=== PATIENT | male | born 1985 | race Caucasian/White ===

== ENCOUNTER 2019-11-12 17:08 | Outpatient (CLI) | payer BC, SELFPAY ==
--- NOTE | ~2019-11-12 | XR_ITS ---
EXAMINATION: XR chest 2V DATE: 11/12/2019 17:35 INDICATION: Shortness of breath. TECHNIQUE: Frontal and lateral views of the chest were obtained. COMPARISON: CT abdomen and pelvis 03/14/2018 FINDINGS: There are airspace opacities in right middle lobe. No pleural effusion or pneumothorax. The heart size is normal. IMPRESSION: 1. Airspace opacities in right middle lobe, consistent with atelectasis versus pneumonia. Reviewed, dictated and finalized at location A.
== END 2019-11-12 17:09 | disposition home or self-care (01) ==
LOC: ANHIMG 17:10
PROVIDERS: PCP Internal Medicine; Visit Provider Internal Medicine
DX: R06.02 Shortness of breath (principal); R91.8 Other nonspecific abnormal finding of lung field
CPT/HCPCS: 71046

== ENCOUNTER 2019-11-13 06:59 | Outpatient (NON) | payer BC, SELFPAY ==
[2019-11-13 19:09] LABS: SARS-CoV-2 RNA PCR Negative
== END 2019-11-13 07:00 ==
PROVIDERS: PCP Internal Medicine; Visit Provider Internal Medicine
DX: R68.89 Other general symptoms and signs (principal)
CPT/HCPCS: 87635; C9803; U0003

== ENCOUNTER 2019-11-23 11:08 | Outpatient (CLI) | payer BC, SELFPAY ==
--- NOTE | ~2019-11-23 | XR_ITS ---
XR chest 2V DATE: 11/23/2019 11:24 INDICATION: Shortness of breath TECHNIQUE: PA and lateral views COMPARISON: 11/12/2019 2 view chest FINDINGS: Normal heart size. No hilar or mediastinal enlargement. No pulmonary infiltrate or consol idation, pulmonary vascular congestion or pleural effusion or pneumothorax. IMPRESSION: Negative Reviewed, dictated and finalized at location B. IMPRESSION: Negative
== END 2019-11-23 11:09 | disposition home or self-care (01) ==
PROVIDERS: PCP Internal Medicine; Visit Provider Internal Medicine
DX: R06.02 Shortness of breath (principal)
CPT/HCPCS: 71046

== ENCOUNTER 2020-01-23 02:42 | Outpatient (CLI) | payer BC, SELFPAY ==
[2020-01-23 18:39] LABS: SARS-CoV-2 RNA PCR Negative
== END 2020-01-23 02:43 | disposition home or self-care (01) ==
LOC: ANHCOVIDDT 02:46
PROVIDERS: PCP Internal Medicine; Visit Provider Internal Medicine Critical Care Medicine
DX: Z01.812 Encounter for preprocedural laboratory examination (principal); Z20.828 Contact with and (suspected) exposure to other viral communicable diseases
CPT/HCPCS: 87635; C9803; U0003

== ENCOUNTER 2020-01-25 07:36 | Outpatient (CLI) | payer BC, SELFPAY ==
--- NOTE | 2020-02-10 17:09 | WPDSLEEPSTUD ---
Sleep Study Date of Study: 01/25/20 Ordering Provider: Jay Zarate Interpreting Physician: Rosalee Barraza MD Sleep Study Type: Polysomnogram Height: 1.91 m Weight: 145.15 kg Body Mass Index: 39.9 [place]: 16 Reason for Sleep Study Hypersomnolence Sleep History Ilir Kohler is a 34-year-old male 75 in tall 320 lb with a BMI of 39.9. He has a history of a prior nocturnal polysomnogram 04/29/2004 which showed alpha wave intrusion with an apnea-hypopnea index in the normal range 3.8. His events were higher in the supine position and he had increased snoring in the supine position His current sleep complaints include occasional snoring which can be severe, and he often wakes feeling tired. He occasionally has daytime difficulties due to excessive sleepiness. He reports acid reflux while sleeping, and reports that this has caused aspiration into his lungs. He does not have trouble sleeping with a cold. He occasionally gasp for breath at night. He occasionally has breathing problems at night reported to him by others. He rarely sweats excessively at night. He does not notice his heart pounding or beating irregularly at night. He rarely falls asleep during the day occasionally involuntarily occasionally while driving. He rarely falls asleep with physical effort. He does not have loss of muscle tone was strong emotion. He occasionally has daytime difficulties due to excessive sleepiness. He works in a warehouse. He does not feel paralyzed when waking or falling asleep and does not have vivid dreamlike scenes upon awakening or falling asleep. He has never free to go sleep. He does not have nightmares. He rarely remembers his dreams. He occasionally has racing thoughts. He does not have feelings of sadness or depression. He frequently has anxiety, does not have muscular tension. He occasionally notices parts of his body jerking at night. He does not kick at night. He does not have crawling and aching feelings in his legs and does not experience leg pain at night. Jaw pain. Bedtime is 9:00 a.m. falling asleep within 30 minutes, waking rarely during sleep. When he wakes, he will watch TV for 30-45 minutes until he falls asleep. He normal wake time during the week is 4:30 p.m./ He estimates 8 hours of sleep on most days. On the weekends his schedule changes, bedtime is 10:00 p.m. and he wakes at 8 in the morning. He works midnights. His sleep is often disturbed by light. He had pneumonia in October. The office note indicates that he had difficulties wearing a mask during sleep. It is not clear if he is wearing CPAP now or if he had another type of mask, maybe an oxygen mask. [facility] Past Medical History Medical History (Updated 02/10/20 @ 18:10 by Rosalee Barraza MD) Essential hypertension History of retained foreign body fully removed 01/31/2019 Left posterior thigh Hypersomnia Morbid obesity Pneumonia Seasonal allergies Family History Family History Sibling Family history of multiple sclerosis Hypertension Father Hypertension Grandparent Diabetes mellitus Social History Social History Smoking status: Never smoker Alcohol intake: never Medications albuterol HFA 1 puff q.4 hours p.r.n. shortness of breath fluticasone nasal spray 50 mcg per spray hydrochlorothiazide 25 mg per day loratadine 1 tablet daily losartan 25 mg a day omeprazole 40 mg a day Sleep Procedure This test was performed using the same and multiple channel system including EOG, EEG, submental EMG, EKG, nasal and oral airflow using thermistors and nasal pressure sensors, chest and abdominal belts for body position data, and pulse oximetry. Video monitoring was also performed. The study was scored using CMS guidelines. Sleep Architecture The recording time was 250.6 minutes. Sleep time 4:08 a.m. 0.5 minutes. Sleep eff
[2020-02-10 18:11] VITALS: BMI 39.9
== END 2020-01-25 07:37 | disposition home or self-care (01) ==
LOC: ANHCSM 15:36
PROVIDERS: PCP Internal Medicine; Visit Provider Internal Medicine
DX: G47.10 Hypersomnia, unspecified (principal); G47.33 Obstructive sleep apnea (adult) (pediatric)
CPT/HCPCS: 95810

== ENCOUNTER 2023-03-22 09:29 | Outpatient (CLI) | payer BC, SELFPAY ==
[2023-03-22 10:48] LABS: Basophils Percent Auto 0.3 % (0.2-1.2); Eosinophils Absolute Auto 0.1 K/mm3 (0-0.3); Eosinophils Percent Auto 1.8 % (0-4.4); Hematocrit 45.9 % (42.0-52.0); Hemoglobin 15.4 g/dL (14.0-18.0); Immature Granulocyte Absolute 0.01 K/mm3 (0.00-0.031); Immature Granulocyte Percent A 0.2 % (0-0.5); Lymphocytes Absolute Auto 1.15 K/mm3 (0.9-3.2); Lymphocytes Percent Auto 18.4 % (18.3-44.2); Mean Corpuscular HGB Conc 33.6 g/dl (32-36); Mean Corpuscular Hemoglobin 27.2 pg (26-34); Mean Corpuscular Volume 81.1 fl (80-100); Mean Platelet Volume 12.6 fl (7.4-10.4); Monocytes Absolute Auto 0.6 K/mm3 (0.1-0.6); Monocytes Percent Auto 8.8 % (2.6-8.5); Neutrophils Absolute Auto 4.4 K/mm3 (1.3-6.7); Neutrophils Percent Auto 70.5 % (45.5-73.1); Platelet Count Result 204 k/mm3 (150-375); Red Blood Count 5.66 M/mm3 (4.6-6.20); Red Cell Distribution Width 13.1 % (11.5-14.5); White Blood Count 6.3 K/mm3 (4.5-10.0)
[2023-03-22 11:00] LABS: Alanine Aminotransferase 40 U/L (6-50); Albumin Level 4.8 g/dL (3.5-5.1); Alkaline Phosphatase 67 U/L (38-126); Anion Gap 10 mmol/L (8-16); Aspartate Amino Transferase 31 U/L (17-59); Blood Urea Nitrogen 17 mg/dL (9-20); Calcium 9.5 mg/dL (8.4-10.2); Carbon Dioxide 25 mmol/L (22-30); Chloride 104 mmol/L (98-107); Cholesterol 183 mg/dL (0-200); Estimated Glomerular Filt Rate > 60; Glucose 93 mg/dL (65-110); HDL Direct 31 mg/dL; Potassium 4.3 mmol/L (3.4-5.0); Sodium 139 mmol/L (137-145); Triglycerides 112 mg/dL (<150)
[2023-03-22 11:11] LABS: LDL Cholesterol Direct 113 mg/dL
[2023-03-25 21:04] LABS: Vitamin D 1,25 (OH)2 Total 31 pg/mL (18-72); Vitamin D2 1,25 (OH)2 <8 pg/mL; Vitamin D3 1,25 (OH)2 31 pg/mL
[2023-03-26 19:38] LABS: Testosterone Free 70.9 pg/mL (35.0-155.0); Testosterone Total 449 ng/dL (250-1100)
== END 2023-03-22 09:30 | disposition home or self-care (01) ==
PROVIDERS: PCP Family Medicine; Visit Provider Family Medicine
DX: I10 Essential (primary) hypertension (principal); E66.01 Morbid (severe) obesity due to excess calories; E78.2 Mixed hyperlipidemia
CPT/HCPCS: 36415; 80053; 80061; 82652; 83036; 84402; 84403; 84443; 85025

== ENCOUNTER 2024-06-29 08:48 | Outpatient (CLI) | payer BC, SELFPAY ==
[2024-06-29 09:12] LABS: Basophils Percent Auto 0.6 % (0.2-1.2); Eosinophils Absolute Auto 0.2 K/mm3 (0-0.3); Eosinophils Percent Auto 3.5 % (0-4.4); Hematocrit 43.6 % (42.0-52.0); Hemoglobin 14.6 g/dL (14.0-18.0); Immature Granulocyte Absolute 0.02 K/mm3 (0.00-0.031); Immature Granulocyte Percent A 0.4 % (0-0.5); Lymphocytes Absolute Auto 1.45 K/mm3 (0.9-3.2); Lymphocytes Percent Auto 26.7 % (18.3-44.2); Mean Corpuscular HGB Conc 33.5 g/dl (32-36); Mean Corpuscular Hemoglobin 27.4 pg (26-34); Mean Platelet Volume 11.1 fl (7.4-10.4); Monocytes Absolute Auto 0.5 K/mm3 (0.1-0.6); Monocytes Percent Auto 9.6 % (2.6-8.5); Neutrophils Absolute Auto 3.2 K/mm3 (1.3-6.7); Neutrophils Percent Auto 59.2 % (45.5-73.1); Platelet Count Result 204 k/mm3 (150-375); Red Blood Count 5.32 M/mm3 (4.6-6.20); Red Cell Distribution Width 12.9 % (11.5-14.5); White Blood Count 5.4 K/mm3 (4.5-10.0)
[2024-06-29 09:31] LABS: Alanine Aminotransferase 68 U/L (6-50); Albumin Level 4.2 g/dL (3.5-5.1); Alkaline Phosphatase 69 U/L (38-126); Anion Gap 8 mmol/L (4-12); Aspartate Amino Transferase 37 U/L (17-59); Bilirubin,Total 0.9 mg/dL (0.2-1.3); Blood Urea Nitrogen 14 mg/dL (9-20); Calcium 8.8 mg/dL (8.4-10.2); Carbon Dioxide 25 mmol/L (22-30); Chloride 107 mmol/L (98-107); Cholesterol 191 mg/dL (0-200); Estimated Glomerular Filt Rate > 60; Glucose 103 mg/dL (65-110); HDL Direct 35 mg/dL; Potassium 4.3 mmol/L (3.4-5.0); Sodium 140 mmol/L (137-145); Triglycerides 99 mg/dL (<150)
[2024-06-29 09:42] LABS: LDL Cholesterol Direct 118 mg/dL
== END 2024-06-29 08:49 | disposition home or self-care (01) ==
LOC: ANHLAB 08:51
PROVIDERS: PCP Family Medicine; Visit Provider Student in an Organized Health Care Education/Training Program
DX: E78.5 Hyperlipidemia, unspecified (principal); I10 Essential (primary) hypertension
CPT/HCPCS: 36415; 80053; 80061; 85025